=== PATIENT | female | born 1940 | race Caucasian/White ===

== ENCOUNTER 2023-04-03 22:20 | Emergency (ER) | payer BC ==
[2023-04-03] MEDS ORDERED: MORPHINE 2 MG/ML INJ. SYRINGE IVP ONE ×2 (22:30→23:45)
[2023-04-03 22:45] LABS: BASOPHILS % (AUTO) 0.2 % (0.0-2.0); EOSINOPHILS # (AUTO) 0.3 K/uL (0.0-0.4); EOSINOPHILS % (AUTO) 3.6 % (0.0-4.0); HEMATOCRIT 38.4 % (36-48); HEMOGLOBIN 12.5 g/dL (12.0-16.0); LYMPHOCYTES # (AUTO) 2.1 K/uL (1.0-5.5); LYMPHOCYTES % (AUTO) 28.2 % (20.5-51.5); MEAN CORPUSCULAR HEMOGLOBIN 31 pg (27-31); MEAN CORPUSCULAR HGB CONC 33 % (32-36); MEAN CORPUSCULAR VOLUME 94 fL (79.0-98.0); MONOCYTES # (AUTO) 0.8 K/uL (0.0-1.0); MONOCYTES % (AUTO) 10.9 % (1.7-9.3); NEUTROPHILS # (AUTO) 4.2 K/uL (1.8-7.7); NEUTROPHILS % (AUTO) 57.1 % (40.0-70.0); PLATELET COUNT (AUTO) 220 K/uL (130-430); RED BLOOD CELL COUNT(AUTO) 4.09 MIL/uL (4.2-6.2); RED CELL DISTRIBUTION WIDTH 14.5 % (9.0-15.0); WHITE BLOOD COUNT (AUTO) 7.4 K/uL (4.8-10.8)
--- NOTE | 2023-04-03 22:54 | NUR ---
ER at bedside examining patient.
[2023-04-03 22:58] LABS: PROTHROMBIN TIME 10.4 SECS (9.5-12.5)
[2023-04-03] MEDS ORDERED: ONDANSETRON HCL 4 MG/2 ML VIAL IVP ONE (23:00)
[2023-04-03 23:02] LABS: ALANINE AMINOTRANSFERASE 19 U/L (12-78); ALBUMIN 3.5 g/dL (3.4-4.8); ANION GAP 6 (5-15); ASPARTATE AMINOTRANSFERASE 27 U/L (10-37); CALCIUM 9.1 mg/dL (8.4-11.0); CHLORIDE 104 mmol/L (98-107); CREATININE 1.27 mg/dL (0.55-1.30); GLUCOSE 164 mg/dL (74-106); TOTAL BILIRUBIN 0.3 mg/dL (0.0-1.0); UREA NITROGEN, BLOOD 45 mg/dL (8-21)
--- NOTE | 2023-04-03 23:04 | NUR ---
PT BIB BY EMS C/O OF LEFT ARM PAIN POST MECHANICAL FALL. PT DID HIT HER HEAD. PT DENIES BEOING ON BLOOD THINNERS. PT HAS AHX OF HYPOTHYROIDISM AND HTN.PT STATES 10 OUT OF 10 LEFT ARM/ SHOULDER PAIN. PT DENIES PAIN FROM HEAD. PT IS GCS 15 EYES OPEN SPONTANEOUSLY. PT IS ALERT AND ORIENTED TO PERSON, PLACE, TIME, OR SITUATION. PT OBEYS COMMANDS. PT DENIES SOB OR CHEST PAIN. PT DENIES VISUAL OR AUDITORY ISSUES. PT DENIES N/V/D. PT DENIES ABDOMINAL PAIN. PT DENIES URINARY OR BOWEL ISSUES. PT SKIN IS WARM. PT HAS ONE 1CM LACERATION NOT ACTIVELY BLEEDING TO THE LEFT CHEEK BONE. PT HAS DRIED BLOOD ON HER FOREHEAD AND ARM. PT IS IN ROOM 5 ON THE MONITOR WITH SON AT BEDSIDE. PLAN OF CARE CONTINUES.
--- NOTE | 2023-04-03 23:04 | NUR ---
CLEANED PATIENTS DRIED BLOOD FROM FOREHEAD AND LEFT ARM. NO ACTIVE BLEEDING ON ASSESSMENT.
--- NOTE | 2023-04-03 23:08 | NUR ---
PT TAKEN TO X-RAY BY X-RAY TECH/
--- NOTE | 2023-04-03 23:09 | NUR ---
# 20 gauge angiocath placed to THE RIGHT AC. Use of asceptic technique. Opsite placed over site. Blood return noted. Blood for lab drawn from site. Flushed with 10 cc of normal saline. No evidence of infiltration noted. Patient tolerated well.
--- NOTE | 2023-04-03 23:10 | NUR ---
PT COMPLAING OF 10 OUT OF [address] ORDERED 2 MG MORPHINE IVP. AND 4 MG ZOFRAN IVP. PT TOLERATING WELL VSS.
[2023-04-03 23:18] VITALS: BP_SYST 151; PULSE 64; RESP 20; TEMP 98.1; O2SAT 98
--- NOTE | 2023-04-03 23:28 | NUR ---
PT BROUGHT BACK FROM CT AND X-RAY BY [id number].
--- NOTE | 2023-04-03 23:32 | NUR ---
PT COMPLAING OF NUMBNESS ON LEFT HAND MD MADE AWARE NEW ORDERS IN PLACE. PLAN OF CARE CONTINUES.
--- NOTE | 2023-04-03 23:40 | NUR ---
PT COMPLAING OF LEFT HAND NUMBNESS CAP REFIL LESS THEN 3 SECONDA PULSE WEAK. MD MADE AWARE NEW ORDERS IN PLACE PLAN OF CARE CONTINUES.
--- NOTE | 2023-04-03 23:47 | NUR ---
PT COMPLAING OF 9 OUT OF [address] ORDERED 2 MG MORPHINE IVP. PT TOLERATED WELL. PLAN OF CARE CONTINUES.
--- NOTE | 2023-04-03 23:48 | NUR ---
X-RAY TECH AT BEDSIDE PERFORMING X-RAY.
--- NOTE | 2023-04-04 00:25 | NUR ---
ER DR REQUEST CT WITH [facility] PT CONSENT FORM SIGNED AND IN CHART.
--- NOTE | 2023-04-04 01:02 | NUR ---
[employer] NOTIFIED OF TRAUMA RE TRIAGE
--- NOTE | 2023-04-04 01:09 | NUR ---
spoke to 911 called for trauma retriage. accepting physician is dr daugherty at [facility]
--- NOTE | 2023-04-04 01:16 | NUR ---
Patient to be transferred to [facility]. Is being transferred due to higher level of care. Receiving facility has accepting physician and available space. ER physician has signed transfer form. Patient or responsible green party has agreed to transfer and signed form. Patient belongings inventoried and will be sent with FAMILY. Copy of nursing notes, lab reports, EKG, Physicians Orders and X-rays to be sent with patient. Report called to ER CHARGE NURSE at receiving facility. Receiving physician is . ambulance service has been called for transfer. ETA is 2.
--- NOTE | 2023-04-04 01:24 | NUR ---
PT TAKEN TO [facility]. PT CONSESNTED TO BEING TRANSSFERED REPORT GIVEN TO CHARGE NURSE AT [facility].
[2023-04-04 01:26] VITALS: BP_SYST 160; PULSE 73; RESP 20; TEMP 98.1; O2SAT 95
== END 2023-04-04 01:24 | disposition short-term general hospital (02) ==
LOC: SED 22:20
DX: S00.83XA Contusion of other part of head, initial encounter (principal); S45.002A Unspecified injury of axillary artery, left side, initial encounter; M62.22 Nontraumatic ischemic infarction of muscle, upper arm; I10 Essential (primary) hypertension; Z79.899 Other long term (current) drug therapy; W01.0XXA Fall on same level from slipping, tripping and stumbling without subsequent striking against object, initial encounter; Y93.89 Activity, other specified; Y92.89 Other specified places as the place of occurrence of the external cause; Y99.8 Other external cause status
CPT/HCPCS: 99291; 70450; 96374; 96375; 80053; 85025; 85610; 36415; 73030; 73060; 72125; 76376 ×2; 96376; 73206; 73201; J2405; J2270; Q9967 ×2